=== PATIENT | female | born 1975 | race Caucasian/White ===

== ENCOUNTER 2021-11-17 09:11 | Outpatient (CLI) | payer BC | END 2021-11-17 09:12 | disposition home or self-care (01) | LOC: CSHMAMMO 09:11 | PROVIDERS: ATTEND Obstetrics & Gynecology | DX: R92.2 Inconclusive mammogram (principal) | CPT/HCPCS: G0279 ==

== ENCOUNTER 2022-01-22 11:21 | Emergency (ER) | payer BC ==
[2022-01-22 12:00] LABS: #Eosinphils 0.1 10x3/uL (0.0-0.5); #Monocytes 0.5 10x3/uL (0.0-1.1); #Neutrophils 2.4 10x3/uL (1.5-8.4); %Basophils 0.8 % (0.0-2.0); %Eosinophils 1.5 % (0.0-6.0); %Lymphocytes 37.6 % (18.0-47.0); %Monocytes 9.9 % (0.0-10.0); Hemoglobin 12.6 g/dL (12.0-15.5); Mean Corpuscular HGB CONC 33.3 g/dL (32.0-36.0); Mean Corpuscular Hemoglobin 30.4 pg (27.0-33.0); Mean Corpuscular Volume 91.1 fl (81.6-98.3); Mean Platelet Volume 11.1 fl (7.4-10.4); Platelet Count 170 10x3/uL (150-450); RBC Distribution Width 12.2 % (11.5-14.5); Red Blood Cell (RBC) Count 4.15 10x6/uL (3.90-5.03); White Blood Cell (WBC) Count 4.7 10x3/uL (3.5-10.5)
[2022-01-22] MEDS ORDERED: Morphine 2 MG/ML VIAL ONE (12:00)
[2022-01-22 12:16] LABS: ALT (SGPT) 13 U/L (8-55); AST (SGOT) 16 U/L (5-34); Albumin 4.4 g/dL (3.5-5.0); Alkaline Phosphatase 46 U/L (40-110); Anion Gap 13 mmol/L (10-20); BUN (Urea Nitrogen) 17 mg/dL (7.0-18.7); Bilirubin, Total 0.7 mg/dL (0.2-1.2); Calc. Creatinine Clearance 0 mL/min (70-130); Calcium 9.3 mg/dL (7.8-10.44); Carbon Dioxide 22 mmol/L (22-29); Chloride 108 mmol/L (98-107); Estimated GFR 107; Globulin 2.8 g/dL (2.4-3.5); Glucose 77 mg/dL (70-105); Lipase 31 U/L (8-78); Potassium 4.4 mmol/L (3.5-5.1); Protein, Total 7.2 g/dL (6.0-8.3); Sodium 139 mmol/L (136-145)
== END 2022-01-22 13:40 | disposition home or self-care (01) ==
LOC: CSHERS 11:21
DX: N83.202 Unspecified ovarian cyst, left side (principal)
CPT/HCPCS: 74176; 76856; 80053; 83690; 85025; 96361; 96374; J2270